=== PATIENT | male | born 1995 | race Caucasian/White ===

== ENCOUNTER 2017-02-21 17:53 | Emergency (ER) | payer OTHER | END 2017-02-21 19:25 | disposition home or self-care (01) | LOC: ER 17:53 | DX: S61.242A Puncture wound with foreign body of right middle finger without damage to nail, initial encounter (principal); F90.9 Attention-deficit hyperactivity disorder, unspecified type; Z88.1 Allergy status to other antibiotic agents; W26.8XXA Contact with other sharp object(s), not elsewhere classified, initial encounter ==